=== PATIENT | female | born 1960 | race Caucasian/White ===

== ENCOUNTER → 2020-12-19 14:51 | Outpatient (BNVA) | payer MEDICARE, MEDICAID, SELFPAY | PROVIDERS: PCP Internal Medicine; Visit Provider Student in an Organized Health Care Education/Training Program | DX: M32.9 Systemic lupus erythematosus, unspecified (principal); M81.8 Other osteoporosis without current pathological fracture; Z79.899 Other long term (current) drug therapy | CPT/HCPCS: 99212 ==

== ENCOUNTER → 2021-03-05 14:40 | Outpatient (BNVA) | payer MEDICARE, MEDICAID, SELFPAY | PROVIDERS: PCP Internal Medicine; Visit Provider Internal Medicine Cardiovascular Disease | DX: I49.3 Ventricular premature depolarization (principal); I10 Essential (primary) hypertension; I31.3 Pericardial effusion (noninflammatory) | CPT/HCPCS: 93005; 99212 ==

== ENCOUNTER → 2022-03-02 14:22 | Outpatient (REF) | payer MEDICARE, MEDICAID, SELFPAY ==
--- NOTE | 2022-03-02 14:24 | HM_ITS ---
* Total monitoring time 2 days and 21 hours. * Underlying rhythm is sinus. Average rate 70/Min. Range 57 to 110/Min. * No atrial fibrillation or flutter or AV blocks or pauses. * Rare supraventricular ectopy with minimal burden. * Frequent ventricular ectopy. 1 morphology. 233 couplets. Overall burden 3.1%. * No patient events. MTDD
== END ==
LOC: HO.CARD 14:22
PROVIDERS: PCP Internal Medicine; Visit Provider Internal Medicine Cardiovascular Disease
DX: I49.3 Ventricular premature depolarization (principal); Z79.899 Other long term (current) drug therapy
CPT/HCPCS: 93242

== ENCOUNTER → 2022-03-26 09:40 | Outpatient (BNVA) | payer MEDICARE, MEDICAID, SELFPAY | PROVIDERS: PCP Internal Medicine; Visit Provider Internal Medicine Cardiovascular Disease | DX: I49.3 Ventricular premature depolarization (principal); I10 Essential (primary) hypertension; M32.9 Systemic lupus erythematosus, unspecified | CPT/HCPCS: 99212 ==

== ENCOUNTER → 2022-12-03 14:18 | Outpatient (BNVA) | payer MEDICARE, MEDICAID, SELFPAY | PROVIDERS: PCP Internal Medicine; Visit Provider Student in an Organized Health Care Education/Training Program | DX: M32.9 Systemic lupus erythematosus, unspecified (principal); M81.8 Other osteoporosis without current pathological fracture; Z79.899 Other long term (current) drug therapy | CPT/HCPCS: 99212 ==

== ENCOUNTER 2022-12-15 12:45 | Outpatient (REF) | payer MEDICARE, MEDICAID, SELFPAY ==
--- NOTE | ~2022-12-15 | MM_ITS ---
EXAMINATION: BONE DENSITOMETRY CLINICAL INDICATION: Age-related osteoporosis without current pathological fracture. COMPARISON: Previous BD dated 07/20/2019 and baseline BD dated 05/13/2011. TECHNIQUE: Using a Fever DXA System (software version: 13.1) manufactured by [employer], dual-energy x-ray absorptiometry was performed of the lumbar spine and left hip. The images are of good technical quality. Summary results are attached. FINDINGS: AP SPINE L1-L4: Current: BMD 0.906 g/cm2, Z-score -0.7, T-score -2.3, osteopenia, 3.4% decrease from previous, 10.4% decrease from baseline (<5% change is not significant). Prior: BMD 0.938 g/cm2. Baseline: BMD 1.011 g/cm2. LEFT FEMUR, NECK: Current: BMD 0.603 g/cm2, Z-score -1.6, T-score -3.1, osteoporosis. Prior: BMD 0.705 g/cm2. Baseline: BMD 0.797 g/cm2. LEFT FEMUR, TOTAL: Current: BMD 0.562 g/cm2, Z-score -2.3, T-score -3.5, osteoporosis, 13.4% decrease from previous, 20.8% decrease from baseline (<5% change is not significant). Prior: BMD 0.649 g/cm2. Baseline: BMD 0.710 g/cm2. IDENTIFIED RISK FACTORS: History of adult fracture. Osteoporosis. Current smoker. Alcohol (3 or more units per day). Menopause. Chronic glucocorticoids. HISTORY OF FRACTURE: Ankle. MEDICATIONS: Vitamin D. Bisphosphonates. MM/XR DEXA axial skeleton IMPRESSION: 1. DIAGNOSIS: Osteoporosis based on the lowest T-score value of -3.5 in the total femur applying World Health Organization criteria. 2. 10-YEAR FRACTURE RISK PREDICTION, FRAX: According to the guidelines, FRAX calculation should only be performed on patients in the osteopenia bone density category.?Therefore, FRAX was not performed on this patient.? 3. Treatment Recommendations: NOF guidelines recommend consideration for treatment in postmenopausal women and men age 50 and older presenting with the following: -A hip or vertebral (clinical or morphometric) fracture. -T-score less than or equal to -2.5 at the femoral neck or spine after appropriate evaluation to exclude secondary causes. -Low bone mass at the hip or spine and a 10-year fracture probability by FRAX of greater than or equal to 3% for hip fracture or greater than or equal to 20% for major osteoporotic fracture based on the [place] adapted WHO algorithm. 4. Other Recommendations: All treatment decisions require clinical judgment and consideration of individual patient factors, including patient preferences, comorbidities, previous drug use, risk factors not captured in the FRAX model (e.g. frailty, falls, vitamin D deficiency, increased bone turnover, interval significant decline in bone density) and possible under or overestimation of fracture risk by FRAX. Additional medical evaluation for secondary cause of low bone mineral density may be appropriate. FUTURE SCAN RECOMMENDATION: People with diagnosed cases of osteoporosis or at high risk for fracture should have regular bone mineral density tests. For patients eligible for Medicare, routine testing is allowed once every 2 years. The testing frequency can be increased to one year for patients who have rapidly progressing disease, those who are receiving or discontinuing medical therapy to restore bone mass, or have additional risk factors.
== END 2022-12-15 12:46 | disposition home or self-care (01) ==
LOC: HO.MAMMO 12:45
PROVIDERS: Visit Provider Student in an Organized Health Care Education/Training Program
DX: M81.0 Age-related osteoporosis without current pathological fracture (principal)
CPT/HCPCS: 77080

== ENCOUNTER 2023-03-31 15:09 | Outpatient (REF) | payer MEDICARE, MEDICAID, SELFPAY ==
[2023-03-31 15:51] LABS: MANUAL DIFF FLAG NO
[2023-03-31 16:49] LABS: Basophils Absolute Auto 0.1 X10*3/uL (0.0-0.2); Eosinophils Absolute Auto 0.1 X10*3/uL (0.0-0.4); Eosinophils Percent Auto 1.8 % (0-4); Hematocrit 41.2 % (37.0-47.0); Hemoglobin 14.2 g/dl (12.0-16.0); Imm Gran Abs Auto 0.01 X10*3/uL (0.00-0.03); Imm Gran Pct Auto 0.2 % (0.0-0.4); Lymphocytes Absolute Auto 0.9 X10*3/uL (1.2-4.9); Mean Corpuscular HGB Conc 34.5 g/dl (31.0-35.0); Mean Corpuscular Hemoglobin 31.6 pg (27.0-33.0); Mean Corpuscular Volume 91.8 fL (80.0-98.0); Mean Platelet Volume 10.2 fL (9.4-12.3); Monocytes Absolute Auto 0.6 X10*3/uL (0.1-1.2); Monocytes Percent Auto 12.8 % (2-11); Neutrophils Absolute Auto 3.4 x10*3/uL (2.0-8.3); Neutrophils Percent Auto 67.2 % (45-73); Platelet Count 329 X10*3/uL (160-400); Red Blood Count 4.49 X10*6/uL (4.20-5.50); Red Cell Distribution Width 13.6 % (11.0-16.0)
[2023-03-31 17:00] LABS: Appearance Urine Clear; Color Urine Yellow; Glucose Urine UA Negative (Negative); Leukocyte Esterase Urine Trace (Negative); Nitrite Urine Negative (Negative); UMIC TRIGGER UA YES; Urine Blood Negative (Negative); Urine Ketones Negative (Negative); Urine Protein Negative (Neg-Trace)
[2023-03-31 17:02] LABS: Bacteria Urine None Seen (None Seen); Hyaline Casts Urine 0-2 /LPF (0-2); RBC Urine 0-2 /HPF (0-2); WBC Urine 0-5 /HPF (0-5)
[2023-03-31 17:32] LABS: Alanine Aminotransferase 13 U/L (0-31); Albumin Level 4.4 g/dL (3.5-5.0); Alkaline Phosphatase 58 U/L (39-117); Anion Gap 12 (12-20); Aspartate Amino Transferase 28 U/L (5-31); Bilirubin Total 0.6 mg/dL (0.0-1.0); Blood Urea Nitrogen 8 mg/dL (9-16); C Reactive Protein < 0.10 mg/dL (< or = 0.50); Calcium 9.4 mg/dL (8.4-10.2); Carbon Dioxide 28 mmol/L (22-29); Chloride 97 mmol/L (96-108); Estimated Glomerular Filt Rate > 60; Glucose Random 88 mg/dL (60-115); Potassium 4.1 mmol/L (3.3-5.1); Sodium 133 mmol/L (135-145); Total Protein 7.3 g/dL (6.5-8.0)
[2023-03-31 17:37] LABS: Creatinine Urine 52.08 mg/dL; Protein/Creatinine Ratio, Ur 0.21 (<0.2); Total Protein Urine Random 11 mg/dL (<12)
[2023-03-31 18:00] LABS: Erythrocyte Sedimentation Rate 2 MM/HR (0-20)
[2023-04-04 15:03] LABS: Prot Elec - Albumin 4.5 g/dL (3.8-4.8); Prot Elec - Alpha1 0.2 g/dL (0.2-0.3); Prot Elec - Alpha2 0.7 g/dL (0.5-0.9); Prot Elec - Beta 1 0.5 g/dL (0.4-0.6); Prot Elec - Beta 2 0.3 g/dL (0.2-0.5); Prot Elec - Total Protein 7.2 g/dL (6.1-8.1)
[2023-04-04 18:15] LABS: Complement C3 96 mg/dL (83-193)
[2023-04-06 06:59] LABS: Anti DNA DS Antibody 1 IU/mL; Antibody to SS-A Antigen <1.0 NEG AI (<1.0 NEG); Antibody to SS-B Antigen <1.0 NEG AI (<1.0 NEG); SM/Ribonucleoprotein Ab <1.0 NEG AI (<1.0 NEG); Smith Protein <1.0 NEG AI (<1.0 NEG)
[2023-04-06 11:48] LABS: IgA 242 mg/dL (70-320); IgG 1137 mg/dL (600-1540); IgM 79 mg/dL (50-300)
[2023-04-06 14:59] LABS: Vitamin D 25-OH, D2 <4 ng/mL; Vitamin D 25-OH, D3 28 ng/mL; Vitamin D 25-OH, Total 28 ng/mL (30-100)
== END 2023-03-31 15:10 | disposition home or self-care (01) ==
LOC: HO.LAB 15:09
PROVIDERS: Absent Provider Student in an Organized Health Care Education/Training Program; PCP Internal Medicine; Referring Provider Internal Medicine; Visit Provider Internal Medicine Cardiovascular Disease
DX: Z13.21 Encounter for screening for nutritional disorder (principal); M32.9 Systemic lupus erythematosus, unspecified; I49.3 Ventricular premature depolarization; I10 Essential (primary) hypertension; M81.0 Age-related osteoporosis without current pathological fracture
CPT/HCPCS: 36415; 80053; 81001; 82306; 82784; 84156; 84165; 85025; 85652; 86140; 86160; 86225; 86235; 86334; 93005; 99212

== ENCOUNTER → 2023-04-27 14:51 | Outpatient (REF) | payer MEDICARE, MEDICAID, SELFPAY ==
--- NOTE | 2023-04-27 14:55 | CA_ITS ---
Transthoracic Echocardiogram Patient (Last, First, Middle): Clarissa Oakes, Gender: Female Date of : 1960 Age: 62 Procedure Date: 04/27/2023 Procedure Type: Transthoracic Echocardiogram Location: OP Height: 162.56 cm Weight: 56.7 kg BSA: 1.60 m2 Heart Rate: bpm BP: 140 / 90 mmHg Community Integration Specialist: TO Referring MD: John Ogden MD Symptoms: I49.3 - Ventricular premature depolarization Study Quality: Fair ECG Rhythm: Sinus Conclusions: - The left ventricular systolic function is normal. The visually estimated ejection fraction is between 60-65%. - There is mild septal and mild basal asymmetric hypertrophy. - The left atrium is moderately dilated. - No obvious valvular pathology seen on this study. - There is mild calcification of the aortic valve. - Small plaque is seen in the sino tubular ridge. Findings Left Ventricle Normal left ventricular cavity size. The left ventricular systolic function is normal. The visually estimated ejection fraction is between 60-65%. There is no evidence of regional wall motion abnormalities. Diastolic function is normal for age. There is mild septal and mild basal asymmetric hypertrophy. Right Ventricle Normal right ventricular cavity size and systolic function. Atria The left atrium is moderately dilated. The right atrium is normal in size. Aortic Valve There is mild calcification of the aortic valve. There is no aortic valve stenosis. There is no aortic valve regurgitation. Mitral Valve The mitral valve appears normal. There is trace mitral valve regurgitation. There is no mitral valve stenosis. Pulmonic Valve The pulmonic valve is likely normal. Tricuspid Valve Normal tricuspid valve structure. There is trace tricuspid valve regurgitation. There is no evidence of pulmonary hypertension. Great Vessels The asc aorta is normal in size. Small plaque is seen in the sino tubular ridge. Venous The inferior vena cava is normal in size and collapses greater than 50% with inspiration. Pericardium/Pleural There is no evidence of pericardial effusion. Prior Study Comparison Changes noted compared to prior study dated: 12/15/2016. Left atrium size increase. Recommendations, Care & Conclusions No obvious valvular pathology seen on this study. Measurements 2D Linear Measurements IVSd: 1.10 0.6-0.9/0.6-1.0 cm LVIDd: 4.10 3.9-5.3/4.2-5.9 cm LVIDd Index: 2.56 2.4-3.2/2.2-3.1 cm/m2 LVIDs: 2.80 2.0-3.6 cm LVPWd: 0.90 0.7-1.1 cm LA Diam: 3.20 2.7-3.8/3.0-4.0 cm LAIDs Index: 2.00 1.5-2.3 cm/m2 LV Mass: 164.38 67-162/88-224 g LV Mass Index: 102.74 43-95/49-115 g/m2 LVOT Diam: 2.30 3.0+(-)1.3 cm 2D Systolic Function EF 4C: 58.10 >55% Mitral Valve MV Pk E: 0.70 MV PK A: 0.58 MV Decel Time: 244.00 E/A: 1.20 E'Lateral: 11.60 E'Medial: 5.87 E/E' Med: 11.90 E/E' Lat: 6.00 PHT: 71.00 MVA PHT: 3.10 Decel [place]: 2.86 Aortic Valve AoV Pk Daniel: 1.36 AoV Mn Daniel: 0.91 AoV VTI: 0.28 AoV Pk Grad: 7.00 Aov Mn Grad: 4.00 [place] Cont.VTI: 4.19 LVOT LVOT Pk Daniel: 1.22 LVOT Mn Daniel: 0.79 LVOT VTI: 0.28 LVOT Pk Grad: 6.00 LVOT Mn Grad: 3.00 LVOT Diam: 2.30 LVOT Area: 4.15 Diastolic Function MV Pk E: 0.70 MV Pk A: 0.58 E/A: 1.20 E'Medial: 5.87 E/E' Med: 11.90 E' Laterial: 11.60 E/E' Lat: 6.00 Right Ventricle TAPSE (mm): 17.90 TVS' Daniel: 9.90 Tricuspid Valve RA Press: 8.00 Great Vessels Aorta Sinus of Valsalva: 3.60 2.0-3.[address] [place]: 2.90 1.7-3.4 cm Ao Asc: 3.30 2.1-3.4 cm Updated in Other Vendor System with Status of Final Elmer Newman MD electronically signed on 04/28/2023 1:05:08 PM with status of Final
== END ==
LOC: HO.CARD 14:51
PROVIDERS: PCP Internal Medicine; Visit Provider Internal Medicine Cardiovascular Disease
DX: I49.3 Ventricular premature depolarization (principal)
CPT/HCPCS: 93306

== ENCOUNTER → 2023-04-27 14:55 | Outpatient (BNV) | payer MEDICARE, MEDICAID, SELFPAY | PROVIDERS: PCP Internal Medicine; Visit Provider Internal Medicine | DX: I35.8 Other nonrheumatic aortic valve disorders (principal) | CPT/HCPCS: 93306 ==

== ENCOUNTER 2023-05-17 13:40 | Outpatient (AMB) | payer MEDICARE, MEDICAID, SELFPAY ==
[2023-05-17 13:45] VITALS: BP 150/80; PULSE 86; TEMP 36.4; O2SAT 98; BMI 22.0
--- NOTE | 2023-05-17 13:45 | A.OFFVIS_ITS ---
Intake Vital Signs 05/17/23 13:45 Height 5 ft 4 in Weight 128 lb 4.944 oz BMI 22.0 BP 150/80 H Blood Pressure Location Rt brachial Position Sitting Pulse 86 Pulse Source Pulse Oximeter Temp 97.5 F Temp Source Skin Pulse Oximetry (%) 98 Intake Visit Reasons: SLE Intake Note: Pt seen today for SLE follow up. 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 Doing well overall. No new complaints. Continues to take hydroxychloroquine 20 mg daily. Has not scheduled an appointment with an quality analyst/technical writer yet. Compliant with a lendronate once weekly. Denies any chest pain, shortness of breath or palpitations. Has been getting eczema on her left thumb recently, started sometime this summer. Has cortisone cream at home but she rarely uses it Initial history: This is a 61-year-old female with a past medical history of SLE, pericarditis and osteoporosis who presents for follow-up. Patient stated she initially started having diffuse joint pains since she was 17. At age 30 she had pericardial effusion and had pericardial window. She had another episode of pericardial effusion or when she had undergone the lucie cardial window. She took prednisone for her SLE in the past. She had been on hydroxychloroquine for about 13 years. Patient was last evaluated by Dr. Chanel Deutsch in 2020. Patient was off the hydroxychloroquine for a few months. She had recurrent pericarditis and her insurance would not approve her Inderal. She was switched to Toprol Xl by Dr. Ogden and hydroxychloroquine was also refilled by Dr. Ogden a few months ago. She is no longer taking alendronate as she could not get it refilled by a provider. She only took it for a few months. Denies any side effects while taking it Patient states she has diffuse joint pain but she believes because it is related to her being on her feet all day at work. [facility] Medical History HTN (hypertension) Lupus (systemic lupus erythematosus) Osteoporosis Pericardial effusion PVCs (premature ventricular contractions) Surgical History S/P pericardial window creation Family History Father HTN (hypertension) Mother No problems noted. Social History Household Members: Children Housing: Apartment Alcohol intake: current Alcohol intake frequency: a few times a week Patient Tobacco Use Status: Current everyday Tobacco user Cigarettes Per Day: 20 Years Smoked: 20 Current occupation: works at [employer] shop Review of Systems Skin/Breast Reports pruritus and Reports rash Physical Exam Vital Signs: Last Vital Signs Temp 97.5 F 05/17/23 13:45 Pulse 86 05/17/23 13:45 BP 150/80 H 05/17/23 13:45 Pulse Ox 98 05/17/23 13:45 BMI result Body Mass Index 22.0 Const General: cooperative, healthy appearing and comfortable Nutritional Appearance: average body habitus Orientation/consciousness: patient oriented x3 Limitations: no limitations HEENT Head: Yes normocephalic and Yes atraumatic Mouth: moist mucous membranes Resp Effort & Inspection: normal respiratory effort and able to speak in complete sentences Auscultation: rhonchi Cardio Rate: regular rate Rhythm: regular rhythm Heart sounds: S1 normal heart sound present and S2 normal heart sound present GI Inspection: No distended Palpation (GI): Soft to palpation and nontender Skin Other: Left thumb eczema Neuro General: patient oriented x3 Extrem Other: Mild osteoarthritic changes of both hands. Left 2nd MCP tenderness Normal nailfold capillaroscopy Assessment & Plan Assessment & Plan (1) Lupus (systemic lupus erythematosus): Code(s): M32.9 - Systemic lupus erythematosus, unspecified Qualifiers: Systemic lupus erythematosus type: unspecified Systemic lupus erythematosus organ involvement: unspecified Qualified Code(s): M32.9 - Systemic lupus erythematosus, unspecified Plan: This is a 62-year-old female with SLE diagnosed in her 30s manifested by arthralgias and pericarditis with pericardial effusion requiring 2 pericardial windows who presents for follow-up. Patient is doing well overall. Compliant with hydroxychloroquine 200 mg daily. Labs are unremarkable. Continue hydroxychloroquine 200 mg daily Labs before next visit in 6 month (2) Osteoporosis: Comment: DEXA in 2018 she showed T-score -2.8 left femur DEXA 12/30 L-spine T-score -2.3 Left femur neck T-score -3.1 Left femur total T-score -3.5 Code(s): M81.0 - Age-related osteoporosis without current pathological fracture Qualifiers: Osteoporosis type: other Presence of current pathological fracture: without current pathological fracture Qualified Code(s): M81.8 - Other osteoporosis without current pathological fracture Plan: . She was started on alendronate but only took it for a few months as Dr. Odom left the practice and she could not get a refill. Continue alendronate for 2 years and will repeat DEXA in spring 2024 Discussed ill effects of smoking on bone health. Encouraged patient to quit (3) Long-term use of hydroxychloroquine: Code(s): Z79.899 - Other extermination inspector (current) drug therapy Plan: Patient is aware of the risk of retinopathy with hydroxychloroquine. Patient still has not made an appointment with her quality analyst/technical writer. Advised patient that she does not make an appointment with her quality analyst/technical writer by next visit I will stop refilling hydroxychloroquine Plan I spent 22 minutes reviewing patient's chart, evaluating patient, ordering diagnostic workup, counseling patient and documenting in the chart Orders: Orders Comprehensive Met. Panel 6 Months M32.9 - Systemic lupus erythematosus, unspecified C Reactive Protein 6 Months M32.9 - Systemic lupus erythematosus, unspecified Protein Creatinine Ratio, Ur 6 Months M32.9 - Systemic lupus erythematosus, unspecified Complete Blood Count Auto Diff 6 Months M32.9 - Systemic lupus erythematosus, unspecified Erythrocyte Sedimentation Rate 6 Months M32.9 - Systemic lupus erythematosus, unspecified Complement C3 6 Months M32.9 - Systemic lupus erythematosus, unspecified Complement C4 6 Months M32.9 - Systemic lupus erythematosus, unspecified Anti DNA DS Antibody 6 Months M32.9 - Systemic lupus erythematosus, unspecified UA w Microscopic 6 Months M32.9 - Systemic lupus erythematosus, unspecified Coding Level of Care Code Est Pt Level 4 (65619) Diagnoses Lupus (systemic lupus erythematosus) M32.9 Systemic lupus erythematosus type: unspecified Systemic lupus erythematosus organ involvement: unspecified Osteoporosis M81.8 Osteoporosis type: other Presence of current pathological fracture: without current pathological fracture Long-term use of hydroxychloroquine Z79.899
== END 2023-05-17 14:20 | disposition home or self-care (01) ==
PROVIDERS: PCP Internal Medicine; Visit Provider Student in an Organized Health Care Education/Training Program
DX: M32.9 Systemic lupus erythematosus, unspecified (principal); M81.8 Other osteoporosis without current pathological fracture; Z79.899 Other long term (current) drug therapy
CPT/HCPCS: 99214

== ENCOUNTER → 2023-05-17 13:40 | Outpatient (BNVA) | payer MEDICARE, MEDICAID, SELFPAY | PROVIDERS: Visit Provider Student in an Organized Health Care Education/Training Program | DX: M32.9 Systemic lupus erythematosus, unspecified (principal); M81.8 Other osteoporosis without current pathological fracture; Z79.899 Other long term (current) drug therapy | CPT/HCPCS: 99212 ==

== ENCOUNTER 2024-01-04 14:30 | Outpatient (AMB) | payer OTHER, MEDICAID, SELFPAY ==
--- NOTE | 2024-01-04 14:32 | MHC.OFFVIS ---
Intake Vital Signs 01/04/24 14:34 Height 5 ft 4 in Weight 125 lb 10.616 oz BMI 21.6 BP 160/82 H Blood Pressure Location Rt brachial Position Sitting Pulse 91 Pulse Source Pulse Oximeter Pulse Oximetry (%) 100 Oxygen Delivery Method Room Air Intake Visit Reasons: SLE/LVM Intake Note: Patient last seen 05/17/23 presents today for follow up and test results. Pt has not completed bloodwork ordered at last visit and has not seen Ophthalmology yet. States she is having issues getting to see eye doctor because of insurance; will do bloodwork today. 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 Doing well overall. No new complaints. Continues to take hydroxychloroquine 200 mg daily. Has not scheduled an appointment with an drafter assistant yet. States that they may no longer takes her insurance. She states that she takes the alendronate weekly but not consistently.. Denies any chest pain, shortness of breath or palpitations. Has been getting eczema on her left thumb recently, started sometime this summer. Has cortisone cream at home but she rarely uses it Initial history: This is a 61-year-old female with a past medical history of SLE, pericarditis and osteoporosis who presents for follow-up. Patient stated she initially started having diffuse joint pains since she was 17. At age 30 she had pericardial effusion and had pericardial window. She had another episode of pericardial effusion or when she had undergone the lucie cardial window. She took prednisone for her SLE in the past. She had been on hydroxychloroquine for about 13 years. Patient was last evaluated by Dr. Chanel Deutsch in 2020. Patient was off the hydroxychloroquine for a few months. She had recurrent pericarditis and her insurance would not approve her Inderal. She was switched to Toprol Xl by Dr. Ogden and hydroxychloroquine was also refilled by Dr. Ogden a few months ago. She is no longer taking alendronate as she could not get it refilled by a provider. She only took it for a few months. Denies any side effects while taking it Patient states she has diffuse joint pain but she believes because it is related to her being on her feet all day at work. [facility] Medical History Pericardial effusion PVCs (premature ventricular contractions) HTN (hypertension) Osteoporosis Lupus (systemic lupus erythematosus) Surgical History S/P pericardial window creation Family History Father HTN (hypertension) Mother No problems noted. Social History Household Members: Children Housing: Apartment Alcohol intake: current Alcohol intake frequency: a few times a week Patient Tobacco Use Status: Current everyday Tobacco user Cigarettes Per Day: 20 Years Smoked: 20 Current occupation: works at [employer] & shop Review of Systems Skin/Breast Reports pruritus and Reports rash Physical Exam Vital Signs: Last Vital Signs Pulse 91 01/04/24 14:34 BP 160/82 H 01/04/24 14:34 Pulse Ox 100 01/04/24 14:34 Oxygen Delivery Method Room Air 01/04/24 14:34 BMI result Body Mass Index 21.6 Const General: cooperative, healthy appearing and comfortable Nutritional Appearance: average body habitus Orientation/consciousness: patient oriented x3 Limitations: no limitations HEENT Head: Yes normocephalic and Yes atraumatic Mouth: moist mucous membranes Resp Effort & Inspection: normal respiratory effort and able to speak in complete sentences Auscultation: rhonchi Cardio Rate: regular rate Rhythm: regular rhythm Heart sounds: S1 normal heart sound present and S2 normal heart sound present GI Inspection: No distended Palpation (GI): Soft to palpation and nontender Skin Other: Left thumb eczema Neuro General: patient oriented x3 Extrem Other: Mild osteoarthritic changes of both hands. Bilateral cool fingers Normal nailfold capillaroscopy Assessment & Plan Assessment & Plan (1) Lupus (systemic lupus erythematosus): Code(s): M32.9 - Systemic lupus erythematosus, unspecified Qualifiers: Systemic lupus erythematosus type: unspecified Systemic lupus erythematosus organ involvement: unspecified Qualified Code(s): M32.9 - Systemic lupus erythematosus, unspecified Plan: This is a 63-year-old female with SLE diagnosed in her 30s manifested by arthralgias and pericarditis with pericardial effusion requiring 2 pericardial windows who presents for follow-up. Patient is doing well overall. Compliant with hydroxychloroquine 200 mg daily. She will do her SLE activity labs today Continue hydroxychloroquine 200 mg daily Labs before next visit in 6 month (2) Osteoporosis: Comment: DEXA in 2018 she showed T-score -2.8 left femur DEXA 12/30 L-spine T-score -2.3 Left femur neck T-score -3.1 Left femur total T-score -3.5 Code(s): M81.0 - Age-related osteoporosis without current pathological fracture Qualifiers: Osteoporosis type: other Presence of current pathological fracture: without current pathological fracture Qualified Code(s): M81.8 - Other osteoporosis without current pathological fracture Plan: . She was started on alendronate but only took it for a few months as Dr. Odom left the practice and she could not get a refill. Continue alendronate for 2 years and will repeat DEXA in spring 2024 Discussed ill effects of smoking on bone health. Encouraged patient to quit (3) Long-term use of hydroxychloroquine: Code(s): Z79.899 - Other custodial (current) drug therapy Plan: Patient is aware of the risk of retinopathy with hydroxychloroquine. Patient still has not made an appointment with her drafter assistant. Advised patient to make an appointment with drafter assistant as soon as she can. Our office will reach out to local drafter assistant office and try to get her an appointment. If we are unable to find her an drafter assistant, we can consider lowering hydroxychloroquine to 200 mg every other day or stopping it altogether (4) Eczema: Code(s): L30.9 - Dermatitis, unspecified Qualifiers: Eczema type: unspecified Qualified Code(s): L30.9 - Dermatitis, unspecified Plan: Left thumb eczema. Prescribed triamcinolone cream Plan I spent 26 minutes reviewing patient's chart, evaluating patient, ordering diagnostic workup, counseling patient and documenting in the chart Orders: Orders C Reactive Protein 6 Months M32.9 - Systemic lupus erythematosus, unspecified Protein Creatinine Ratio, Ur 6 Months M32.9 - Systemic lupus erythematosus, unspecified UA w Microscopic 6 Months M32.9 - Systemic lupus erythematosus, unspecified Complete Blood Count Auto Diff 6 Months M32.9 - Systemic lupus erythematosus, unspecified Comprehensive Met. Panel 6 Months M32.9 - Systemic lupus erythematosus, unspecified Erythrocyte Sedimentation Rate 6 Months M32.9 - Systemic lupus erythematosus, unspecified Anti DNA DS Antibody 6 Months M32.9 - Systemic lupus erythematosus, unspecified Complement C3 6 Months M32.9 - Systemic lupus erythematosus, unspecified Complement C4 6 Months M32.9 - Systemic lupus erythematosus, unspecified Medications: New triamcinolone acetonide 0.1% Do not use on face, axilla or genital areas 1 appl topical BID 15 grams 1RF Coding Level of Care Code Est Pt Level 4 (35443) Diagnoses Systemic lupus erythematosus, unspecified SLE type, unspecified organ involvement status M32.9 Systemic lupus erythematosus type: unspecified Systemic lupus erythematosus organ involvement: unspecified Other osteoporosis without current pathological fracture M81.8 Osteoporosis type: other Presence of current pathological fracture: without current pathological fracture Long-term use of hydroxychloroquine Z79.899 Eczema, unspecified type L30.9 Eczema type: unspecified
[2024-01-04 14:34] VITALS: BP 160/82; PULSE 91; O2SAT 100; BMI 21.6
== END 2024-01-04 14:51 | disposition home or self-care (01) ==
PROVIDERS: PCP Internal Medicine; Visit Provider Student in an Organized Health Care Education/Training Program
DX: M32.9 Systemic lupus erythematosus, unspecified (principal); M81.8 Other osteoporosis without current pathological fracture; Z79.899 Other long term (current) drug therapy; L30.9 Dermatitis, unspecified
CPT/HCPCS: 99214

== ENCOUNTER 2024-01-04 14:30 | Outpatient (REF) | payer OTHER, SELFPAY ==
[2024-01-04 15:09] LABS: MANUAL DIFF FLAG NO
[2024-01-04 15:18] LABS: Basophils Absolute Auto 0.1 X10*3/uL (0.0-0.2); Basophils Percent Auto 1.6 % (0-2); Eosinophils Absolute Auto 0.1 X10*3/uL (0.0-0.4); Eosinophils Percent Auto 1.6 % (0-4); Imm Gran Abs Auto 0.01 X10*3/uL (0.00-0.03); Imm Gran Pct Auto 0.2 % (0.0-0.4); Lymphocytes Percent Auto 19.5 % (20-40); Mean Corpuscular HGB Conc 35.7 g/dl (31.0-35.0); Mean Corpuscular Hemoglobin 32.6 pg (27.0-33.0); Mean Corpuscular Volume 91.3 fL (80.0-98.0); Mean Platelet Volume 9.2 fL (9.4-12.3); Monocytes Absolute Auto 0.6 X10*3/uL (0.1-1.2); Monocytes Percent Auto 12.5 % (2-11); Neutrophils Absolute Auto 3.2 x10*3/uL (2.0-8.3); Neutrophils Percent Auto 64.6 % (45-73); Platelet Count 312 X10*3/uL (160-400); Red Cell Distribution Width 13.2 % (11.0-16.0)
[2024-01-04 15:41] LABS: Appearance Urine Clear; Color Urine Yellow; Glucose Urine UA Negative (Negative); Leukocyte Esterase Urine Small (1+) (Negative); Nitrite Urine Negative (Negative); PH 6.5 (5.0-9.0); UMIC TRIGGER UA YES; Urine Blood Negative (Negative); Urine Ketones Negative (Negative); Urine Protein Negative (Neg-Trace)
[2024-01-04 15:46] LABS: Bacteria Urine Trace (None Seen); Hyaline Casts Urine 0-2 /LPF (0-2); RBC Urine 0-2 /HPF (0-2)
[2024-01-04 15:54] LABS: Alanine Aminotransferase 15 U/L (0-31); Albumin Level 4.4 g/dL (3.5-5.0); Alkaline Phosphatase 60 U/L (39-117); Anion Gap 12 (12-20); Aspartate Amino Transferase 31 U/L (5-31); Bilirubin Total 0.4 mg/dL (0.0-1.0); Blood Urea Nitrogen 8 mg/dL (9-16); C Reactive Protein < 0.10 mg/dL (< or = 0.50); Calcium 9.9 mg/dL (8.4-10.2); Carbon Dioxide 31 mmol/L (22-29); Chloride 94 mmol/L (96-108); Estimated Glomerular Filt Rate > 60; Glucose Random 103 mg/dL (60-115); Potassium 4.9 mmol/L (3.3-5.1); Sodium 132 mmol/L (135-145); Total Protein 7.6 g/dL (6.5-8.0)
[2024-01-04 15:59] LABS: Erythrocyte Sedimentation Rate 2 MM/HR (0-20)
[2024-01-04 16:45] LABS: Protein/Creatinine Ratio, Ur 0.24 (<0.2); Total Protein Urine Random 12 mg/dL (<12)
[2024-01-07 01:58] LABS: Complement C3 83 mg/dL (83-193)
[2024-01-10 20:24] LABS: Anti DNA DS Antibody <1 IU/mL
== END 2024-01-04 14:31 | disposition home or self-care (01) ==
LOC: HO.LAB 14:30
PROVIDERS: PCP Internal Medicine; Visit Provider Student in an Organized Health Care Education/Training Program
DX: M32.9 Systemic lupus erythematosus, unspecified (principal); M81.8 Other osteoporosis without current pathological fracture; L30.9 Dermatitis, unspecified; Z79.899 Other long term (current) drug therapy
CPT/HCPCS: 36415; 80053; 81001; 82570; 84156; 85025; 85652; 86140; 86160; 86225; 99212

== ENCOUNTER 2024-04-05 14:36 | Outpatient (AMB) | payer OTHER, SELFPAY ==
[2024-04-05 14:40] VITALS: BP 160/90; PULSE 92; BMI 22.3
--- NOTE | 2024-04-05 14:40 | MHC.OFFVIS ---
Vital Signs 04/05/24 14:40 Height 5 ft 4 in Weight 130 lb 1.164 oz BMI 22.3 BP 160/90 H Blood Pressure Location Lt brachial Position Sitting Pulse 92 Intake Visit Reasons: 1 year follow up after testing Intake Note: 1 year follow-up after echo with ekg c/o heart racing Mechanic Chief Required: No Allergies aspirin [Aspirin] Allergy (Unknown, Verified 01/04/24 14:36) SWELLING Medication List - Last Reconciled 04/05/24 by John Ogden MD alendronate 70 mg PO QWEEK hydroxychloroquine 200 mg PO DAILY metoprolol succinate ER (Toprol XL) 100 mg PO DAILY omeprazole 20 mg PO ONCE triamcinolone acetonide 0.1% 1 appl topical BID HPI Comments Details: Clarissa comes for follow-up. She has been noticing elevated blood pressure and some of the visits more recently. She says she has been eating better and has been losing weight although she has been noticing more symptoms of strong heartbeat and palpitations. Not sure if she is having more PVCs or just more regular and strong heartbeats. She does not monitor blood pressure at home. She does not have any significant stress in her life currently. She also does not eat a lot of salt. Denies any orthopnea, PND, leg edema. No exertional chest pain. She unfortunately continues to smoke. [facility] Medical History Pericardial effusion PVCs (premature ventricular contractions) HTN (hypertension) Osteoporosis Lupus (systemic lupus erythematosus) Surgical History S/P pericardial window creation Family History Father HTN (hypertension) Mother No problems noted. Social History Household Members: Children Housing: Apartment Alcohol intake: current Alcohol intake frequency: a few times a week Patient Tobacco Use Status: Current everyday Tobacco user Cigarettes Per Day: 20 Years Smoked: 20 Current occupation: works at [employer] Review of Systems Const Denies chills, Denies fatigue, Denies fever(s), Denies frequent falls, Denies weakness, Denies weight gain and Denies weight loss ENT Denies dizziness Card Denies chest pain, Denies leg edema, Denies lightheadedness, Denies palpitations, Denies dyspnea, Denies dyspnea on exertion, Denies orthopnea and Denies other (loss of consciousness) Resp Denies cough, Denies dyspnea and Denies dyspnea on exertion GI Denies hematochezia and Denies change in stool character Musc Denies abnormal gait, Denies muscle weakness, Denies numbness, Denies radiating pain into limb and Denies tingling Neuro Denies abnormal gait, Denies dizziness, Denies frequent falls, Denies numbness, Denies tingling and Denies weakness Endo Denies fatigue and Denies palpitations Physical Exam Vital Signs: Last Vital Signs Pulse 92 04/05/24 14:40 BP 160/90 H 04/05/24 14:40 BMI result Body Mass Index 22.3 Const General: cooperative, comfortable, no acute distress, alert and awake Nutritional Appearance: average body habitus Orientation/consciousness: patient oriented x3 Limitations: no limitations Neck Neck: Yes trachea midline, Yes supple and Yes no JVD Resp Effort & Inspection: normal respiratory effort Auscultation: clear to auscultation bilaterally and diminished lung sounds Cardio Jugular venous distension: no JVD Palpation: normal PMI Rate: regular rate Rhythm: regular rhythm Heart sounds: S1 normal heart sound present and S2 normal heart sound present GI Auscultation: normal bowel sounds Skin General skin exam: no rashes or lesions noted and dry skin Neuro General: patient oriented x3 and no focal motor deficits Extrem General: Yes no clubbing, cyanosis or edema Psych Appearance: grossly normal Office Procedures EKG Details: EKG shows normal sinus rhythm with nonspecific ST changes 24658-[id number], Complete Assessment & Plan Assessment & Plan (1) HTN (hypertension): Code(s): I10 - Essential (primary) hypertension Category: Medical Plan: Uncontrolled blood pressure on today's exam. She has had multiple readings of uncontrolled blood pressure in the past. She was having increased symptoms of palpitation. Will check TSH. Check the lab work as prescribed by her senior production planner. Meanwhile will increase Toprol-XL to 100 mg twice a day. Advised to monitor blood pressure at her work intermittently and maintain a log. Goal blood pressure less than 130/84. This was discussed with her. Continue to participate in stress mitigation strategies. Low-salt diet was discussed. Advised to give me a log in about a month's time and see if we need to further change in medications. (2) PVCs (premature ventricular contractions): Code(s): I49.3 - Ventricular premature depolarization Category: Medical Plan: Prior history of highly symptomatic PVCs with increased symptoms of palpitation at this point time. Will obtain Holter monitor to further assess for the. Will also obtain echocardiogram to assess LV systolic and diastolic function. These tests will be scheduled in near future. Meanwhile will increase her Toprol-XL as above. Advised to avoid stimulants. Will follow up in the clinic in 1 year's time, sooner p.r.n.. Thank you for allowing me to partake in her care Orders: Orders ECG 3 day holter monitor Today I49.3 - Ventricular premature depolarization TSH reflex Free T4 Today I49.3 - Ventricular premature depolarization CA echo transthoracic complete 1 Month I10 - Essential (primary) hypertension Medications: Changed From metoprolol succinate ER (Toprol XL) 100 mg PO DAILY 90 tabs 3RF To metoprolol succinate ER (Toprol XL) 100 mg PO BID 180 tabs 3RF Coding Level of Care Code Est Pt Level 4 (81195) Diagnoses HTN (hypertension) I10 PVCs (premature ventricular contractions) I49.3 CPT Codes EKG - CPT: 56361-[id number], Complete ([id number])
== END 2024-04-05 15:23 | disposition home or self-care (01) ==
PROVIDERS: PCP Internal Medicine; Visit Provider Internal Medicine Cardiovascular Disease
DX: I10 Essential (primary) hypertension (principal); I49.3 Ventricular premature depolarization
CPT/HCPCS: 93010; 99214

== ENCOUNTER → 2024-04-05 14:36 | Outpatient (BNVA) | payer OTHER, SELFPAY | PROVIDERS: PCP Internal Medicine; Visit Provider Internal Medicine Cardiovascular Disease | DX: I10 Essential (primary) hypertension (principal); I49.3 Ventricular premature depolarization; R94.31 Abnormal electrocardiogram [ECG] [EKG] | CPT/HCPCS: 93005; 99212 ==

== ENCOUNTER → 2024-05-14 13:46 | Outpatient (REF) | payer OTHER, SELFPAY ==
--- NOTE | 2024-05-14 13:49 | CA_ITS ---
Transthoracic Echocardiogram Patient (Last, First, Middle): Clarissa Oakes, Gender: Female Date of : 1960 Age: 63 Procedure Date: 05/14/2024 Procedure Type: Transthoracic Echocardiogram Location: OP Height: 162.56 cm Weight: 54.43 kg BSA: 1.57 m2 Heart Rate: 72 bpm BP: 172 / 95 mmHg Snowmaker: SHELLY Referring MD: John Ogden MD Transferrer: John Ogden MD Symptoms: I10 - Essential (primary) hypertension Study Quality: Fair ECG Rhythm: Sinus Conclusions: - 1. Hyperdynamic LV EF of greater than 70% with mild LVH 2. Normal cardiac valvular Doppler 3. Mildly dilated ascending aorta at 3.9 cm 4. No gross pericardial effusion Findings Left Ventricle Normal left ventricular cavity size. There is mildly increased left ventricular wall thickness. The left ventricular systolic function is hyperdynamic. The visually estimated ejection fraction is >70%. Spectral Doppler is indicative of a normal filling pattern. Right Ventricle Normal right ventricular cavity size and systolic function. Atria The left atrium is mildly dilated. There is lipomatous hypertrophy of the interatrial septum. There is no evidence of interatrial shunt. The right atrium is normal in size. Aortic Valve Normal aortic valve structure and function. There is no aortic valve stenosis. There is no aortic valve regurgitation. Mitral Valve Normal mitral valve structure and function. There is trace mitral valve regurgitation. There is no mitral valve stenosis. Pulmonic Valve The pulmonic valve is likely normal. There is trace pulmonic valve regurgitation. Tricuspid Valve Normal tricuspid valve structure. Tricuspid regurgitation envelope is inadequate for calculation of right ventricular systolic pressure. Normal right atrial pressure. Great Vessels The pulmonary artery was not well visualized. There is mild dilatation of the ascending aorta measuring 3.90 cm. Venous The inferior vena cava is normal in size and collapses greater than 50% with inspiration. Pericardium/Pleural There is no evidence of pericardial effusion. Measurements 2D Linear Measurements IVSd: 1.36 0.6-0.9/0.6-1.0 cm LVIDd: 4.29 3.9-5.3/4.2-5.9 cm LVIDd Index: 2.73 2.4-3.2/2.2-3.1 cm/m2 LVIDs: 2.36 2.0-3.6 cm LVPWd: 1.18 0.7-1.1 cm LA Diam: 4.00 2.7-3.8/3.0-4.0 cm LAIDs Index: 2.55 1.5-2.3 cm/m2 LV Mass: 249.24 67-162/88-224 g LV Mass Index: 158.75 43-95/49-115 g/m2 LVOT Diam: 2.00 3.0+(-)1.3 cm 2D Systolic Function EF 4C: 75.10 >55% EF 2C: 72.10 >55% EF BiP: 74.00 >55% Mitral Valve MV Pk E: 0.79 MV PK A: 0.68 MV Decel Time: 222.00 E/A: 1.20 E'Lateral: 10.10 E'Medial: 7.72 E/E' Med: 10.30 E/E' Lat: 7.90 PHT: 65.00 MVA PHT: 3.38 Decel Ramsey: 3.57 Aortic Valve AoV Pk Daniel: 1.31 AoV Mn Daniel: 0.90 AoV VTI: 0.27 AoV Pk Grad: 7.00 Aov Mn Grad: 4.00 [place] Cont.VTI: 2.93 LVOT LVOT Pk Daniel: 1.16 LVOT Mn Daniel: 0.82 LVOT VTI: 0.25 LVOT Pk Grad: 5.00 LVOT Mn Grad: 3.00 LVOT Diam: 2.00 LVOT Area: 3.14 Diastolic Function MV Pk E: 0.79 MV Pk A: 0.68 E/A: 1.20 E'Medial: 7.72 E/E' Med: 10.30 E' Laterial: 10.10 E/E' Lat: 7.90 Right Ventricle TAPSE (mm): 23.00 TVS' Daniel: 9.36 Tricuspid Valve RA Press: 3.00 Great Vessels Aorta Sinus of Valsalva: 3.70 2.0-3.5 cm Ao Asc: 3.90 2.1-3.4 cm Pulmonary Valve PV Pk Daniel: 0.76 Peak PV Grad: 2.00 Updated in Other Vendor System with Status of Final John Ogden MD electronically signed on 05/14/2024 3:44:16 PM with status of Final
--- NOTE | 2024-05-14 13:49 | HM_ITS ---
Conclusion: 1. Patient was monitored for total period of 3 days 2. Baseline was normal sinus rhythm with no pauses with average heart rate of 74 beats per minute 3. Occasional PACs and PVCs noted 4. No patient reported symptoms MTDD
== END ==
LOC: HO.CARD 13:46
PROVIDERS: Visit Provider Internal Medicine Cardiovascular Disease
DX: I49.3 Ventricular premature depolarization (principal); I10 Essential (primary) hypertension
CPT/HCPCS: 93242; 93306

== ENCOUNTER → 2024-05-14 13:49 | Outpatient (BNV) | payer OTHER, SELFPAY | PROVIDERS: Visit Provider Internal Medicine Cardiovascular Disease | DX: I49.1 Atrial premature depolarization (principal); I49.3 Ventricular premature depolarization | CPT/HCPCS: 93244; 93306 ==

== ENCOUNTER 2024-05-18 14:22 | Outpatient (REF) | payer OTHER, SELFPAY ==
[2024-05-18 15:50] LABS: TSH reflex Free T4 3.54 uIU/mL (0.32-4.0)
== END 2024-05-18 14:23 | disposition home or self-care (01) ==
LOC: HO.LAB 14:22
PROVIDERS: Internal Medicine Cardiovascular Disease; Visit Provider Student in an Organized Health Care Education/Training Program
DX: I49.3 Ventricular premature depolarization (principal)
CPT/HCPCS: 36415; 84443

== ENCOUNTER 2024-06-26 12:22 | Outpatient (REF) | payer OTHER, SELFPAY ==
[2024-06-26 12:38] LABS: MANUAL DIFF FLAG NO
[2024-06-26 12:51] LABS: Basophils Absolute Auto 0.1 X10*3/uL (0.0-0.2); Basophils Percent Auto 1.2 % (0-2); Eosinophils Absolute Auto 0.1 X10*3/uL (0.0-0.4); Eosinophils Percent Auto 2.3 % (0-4); Hematocrit 39.5 % (37.0-47.0); Hemoglobin 13.7 g/dl (12.0-16.0); Imm Gran Abs Auto 0.01 X10*3/uL (0.00-0.03); Imm Gran Pct Auto 0.2 % (0.0-0.4); Lymphocytes Absolute Auto 1.2 X10*3/uL (1.2-4.9); Mean Corpuscular HGB Conc 34.7 g/dl (31.0-35.0); Mean Corpuscular Hemoglobin 32.5 pg (27.0-33.0); Mean Corpuscular Volume 93.6 fL (80.0-98.0); Mean Platelet Volume 9.3 fL (9.4-12.3); Monocytes Absolute Auto 0.7 X10*3/uL (0.1-1.2); Monocytes Percent Auto 14.9 % (2-11); Neutrophils Absolute Auto 2.8 x10*3/uL (2.0-8.3); Neutrophils Percent Auto 57.4 % (45-73); Platelet Count 266 X10*3/uL (160-400); Red Blood Count 4.22 X10*6/uL (4.20-5.50); Red Cell Distribution Width 13.1 % (11.0-16.0); White Blood Count 4.8 X10*3/uL (4.8-10.8)
[2024-06-26 13:07] LABS: Appearance Urine Clear; Color Urine Yellow; Glucose Urine UA Negative (Negative); Leukocyte Esterase Urine Moderate (2+) (Negative); Nitrite Urine Negative (Negative); Specific Gravity - Urine 1.015 (1.005-1.025); UMIC TRIGGER UA YES; Urine Blood Negative (Negative); Urine Ketones Negative (Negative); Urine Protein Negative (Neg-Trace)
[2024-06-26 13:14] LABS: Bacteria Urine None Seen (None Seen); Hyaline Casts Urine 0-2 /LPF (0-2); RBC Urine 0-2 /HPF (0-2)
[2024-06-26 13:27] LABS: Alanine Aminotransferase 14 U/L (0-31); Albumin Level 4.4 g/dL (3.5-5.0); Alkaline Phosphatase 58 U/L (39-117); Anion Gap 13 (12-20); Aspartate Amino Transferase 24 U/L (5-31); Bilirubin Total 0.5 mg/dL (0.0-1.0); Blood Urea Nitrogen 7 mg/dL (9-16); C Reactive Protein < 0.10 mg/dL (< or = 0.50); Calcium 9.8 mg/dL (8.4-10.2); Carbon Dioxide 29 mmol/L (22-29); Chloride 97 mmol/L (96-108); Estimated Glomerular Filt Rate > 60; Glucose Random 100 mg/dL (60-115); Potassium 4.5 mmol/L (3.3-5.1); Sodium 134 mmol/L (135-145); Total Protein 7.3 g/dL (6.5-8.0)
[2024-06-26 13:30] LABS: Erythrocyte Sedimentation Rate 4 MM/HR (0-20)
[2024-06-26 14:43] LABS: Protein/Creatinine Ratio, Ur 0.25 (<0.2); Total Protein Urine Random 14 mg/dL (<12)
[2024-06-27 09:49] LABS: Complement C3 91 mg/dL (83-193)
[2024-06-28 22:37] LABS: Anti DNA DS Antibody <1 IU/mL
== END 2024-06-26 12:23 | disposition home or self-care (01) ==
LOC: HO.LAB 12:22
PROVIDERS: PCP Internal Medicine; Visit Provider Student in an Organized Health Care Education/Training Program
DX: M32.9 Systemic lupus erythematosus, unspecified (principal)
CPT/HCPCS: 36415; 80053; 81001; 82570; 84156; 85025; 85652; 86140; 86160; 86225

== ENCOUNTER 2024-07-04 14:19 | Outpatient (AMB) | payer OTHER, SELFPAY ==
[2024-07-04 14:21] VITALS: BP 158/82; PULSE 59; O2SAT 99; BMI 22.7
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
== END 2024-07-04 14:45 | disposition home or self-care (01) ==
PROVIDERS: Visit Provider Student in an Organized Health Care Education/Training Program
DX: M32.9 Systemic lupus erythematosus, unspecified (principal); M81.8 Other osteoporosis without current pathological fracture; Z79.899 Other long term (current) drug therapy; J30.2 Other seasonal allergic rhinitis; Z12.2 Encounter for screening for malignant neoplasm of respiratory organs
CPT/HCPCS: 99215; G2211

== ENCOUNTER → 2024-07-04 14:19 | Outpatient (BNVA) | payer OTHER, SELFPAY | PROVIDERS: Visit Provider Student in an Organized Health Care Education/Training Program | DX: Z12.2 Encounter for screening for malignant neoplasm of respiratory organs (principal); M32.9 Systemic lupus erythematosus, unspecified; I31.39 Other pericardial effusion (noninflammatory); M81.8 Other osteoporosis without current pathological fracture; J30.2 Other seasonal allergic rhinitis; Z79.899 Other long term (current) drug therapy | CPT/HCPCS: 99212 ==

== ENCOUNTER 2025-01-04 12:29 | Outpatient (REF) | payer OTHER, SELFPAY ==
[2025-01-04 12:56] LABS: MANUAL DIFF FLAG NO
[2025-01-04 14:26] LABS: Appearance Urine Cloudy; Color Urine Yellow; Glucose Urine UA Negative (Negative); Leukocyte Esterase Urine Large (3+) (Negative); Nitrite Urine Negative (Negative); PH 5.5 (5.0-9.0); Specific Gravity - Urine <= 1.005 (1.005-1.025); UMIC TRIGGER UA YES; Urine Blood Negative (Negative); Urine Ketones Negative (Negative); Urine Protein Negative (Neg-Trace)
[2025-01-04 14:30] LABS: Bacteria Urine 1+ (None Seen); Hyaline Casts Urine 0-2 /LPF (0-2); RBC Urine 0-2 /HPF (0-2); Squamous Epithelial Cell Urine >20 /HPF (0-2)
[2025-01-04 14:41] LABS: Basophils Absolute Auto 0.1 X10*3/uL (0.0-0.2); Basophils Percent Auto 1.2 % (0-2); Eosinophils Absolute Auto 0.1 X10*3/uL (0.0-0.4); Eosinophils Percent Auto 1.6 % (0-4); Hematocrit 39.5 % (37.0-47.0); Hemoglobin 13.7 g/dl (12.0-16.0); Imm Gran Abs Auto 0.01 X10*3/uL (0.00-0.03); Imm Gran Pct Auto 0.2 % (0.0-0.4); Lymphocytes Absolute Auto 1.1 X10*3/uL (1.2-4.9); Lymphocytes Percent Auto 23.1 % (20-40); Mean Corpuscular HGB Conc 34.7 g/dl (31.0-35.0); Mean Corpuscular Hemoglobin 30.9 pg (27.0-33.0); Mean Platelet Volume 10.6 fL (9.4-12.3); Monocytes Absolute Auto 0.7 X10*3/uL (0.1-1.2); Monocytes Percent Auto 13.5 % (2-11); Neutrophils Percent Auto 60.4 % (45-73); Platelet Count 294 X10*3/uL (160-400); Red Blood Count 4.44 X10*6/uL (4.20-5.50); Red Cell Distribution Width 13.4 % (11.0-16.0); White Blood Count 4.9 X10*3/uL (4.8-10.8)
[2025-01-04 14:52] LABS: Alanine Aminotransferase 16 U/L (0-31); Albumin Level 4.5 g/dL (3.5-5.0); Alkaline Phosphatase 50 U/L (39-117); Anion Gap 11 (12-20); Aspartate Amino Transferase 30 U/L (5-31); Bilirubin Total 0.5 mg/dL (0.0-1.0); Blood Urea Nitrogen 10 mg/dL (9-16); C Reactive Protein < 0.10 mg/dL (< or = 0.50); Calcium 9.3 mg/dL (8.4-10.2); Carbon Dioxide 30 mmol/L (22-29); Chloride 98 mmol/L (96-108); Estimated Glomerular Filt Rate > 60; Glucose Random 94 mg/dL (60-115); Potassium 3.7 mmol/L (3.3-5.1); Sodium 135 mmol/L (135-145); Total Protein 7.5 g/dL (6.5-8.0)
[2025-01-04 15:01] LABS: Total Protein Urine Random < 7 mg/dL (<12)
[2025-01-04 15:20] LABS: Erythrocyte Sedimentation Rate 2 MM/HR (0-20)
[2025-01-07 12:27] LABS: Complement C3 96 mg/dL (83-193)
[2025-01-07 19:33] LABS: Anti DNA DS Antibody <1 IU/mL
[2025-01-10 08:44] LABS: DNAds, Crithidia Antibody Negative (Negative)
[2025-01-10 13:38] LABS: Vitamin D 25-OH, D2 19 ng/mL; Vitamin D 25-OH, D3 10 ng/mL; Vitamin D 25-OH, Total 29 ng/mL (30-100)
== END 2025-01-04 12:30 | disposition home or self-care (01) ==
LOC: HO.LAB 12:29
PROVIDERS: Absent Provider Student in an Organized Health Care Education/Training Program; PCP Internal Medicine; Visit Provider Student in an Organized Health Care Education/Training Program
DX: M32.9 Systemic lupus erythematosus, unspecified (principal); E55.9 Vitamin D deficiency, unspecified
CPT/HCPCS: 36415; 80053; 81001; 82306; 82570; 84156; 85025; 85652; 86140; 86160; 86225; 86255